=== PATIENT | male | born 1955 | race Caucasian/White ===

== ENCOUNTER 2017-12-18 11:16 | Emergency (ER) | payer BC ==
[2017-12-18 12:01] VITALS: BP 159/87
[2017-12-18] MEDS ORDERED: Diphtheria/Tetanus Toxoids,Adult (Td) 0.5 ML SDV IM ONE (12:03)
--- NOTE | 2017-12-18 17:03 | EDM.PDOC ---
ED HPI GENERAL MEDICAL PROBLEM - General Chief Complaint: General Stated Complaint: hand laceration Time Seen by Provider: 12/18/17 11:30 Source of Information: Reports: Patient History Limitations: Reports: No Limitations - History of Present Illness INITIAL COMMENTS - FREE TEXT/NARRATIVE: This is a 62yo M who got his fingers stuck in a combine. He has stopped bleeding and doing well. He has some abrasions and cut skin. 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) - Related Data Allergies Allergy/AdvReac Type Severity Reaction Status Date / Time codeine Allergy Vomiting Verified 02/11/16 22:14 verapamil [From [facility]] Allergy Anaphylactic Verified 02/11/16 22:14 Shock Home Meds: Home Meds Aspirin 81 mg PO DAILY 02/11/16 [History] DULoxetine HCl [Duloxetine HCl] 30 mg PO BID 02/11/16 [History] Hydrochlorothiazide/Lisinopril [Lisinopril-HCTZ 20-25 MG] 25 mg PO DAILY [History] Metoprolol Tartrate 25 mg PO BID 02/11/16 [History] Past Medical History HEENT History: Reports: Other (See Below) Other HEENT History: sleep apnea Respiratory History: Reports: Sleep Apnea Musculoskeletal History: Reports: Back Pain, Chronic, Fibromyalgia, Neck Pain, Chronic, Other (See Below) Other Musculoskeletal History: Shoulder pain Neurological History: Reports: Brain Injury, Seizure - Past Surgical History Head Surgeries/Procedures: Reports: Other (See Below) Social & Family History - Family History Family Medical History: Noncontributory - Caffeine Use Caffeine Use: Reports: Coffee ED ROS GENERAL - Review of Systems Review Of Systems: ROS reveals no pertinent complaints other than HPI. ED EXAM, GENERAL - Physical Exam Exam: See Below Exam Limited By: No Limitations General Appearance: Alert, WD/WN, No Apparent Distress Respiratory/Chest: No Respiratory Distress Cardiovascular: Normal Peripheral Pulses Extremities: Other (right index and middle finger abrasion and cuts) Neurological: Alert, Oriented, CN II-XII Intact Skin Exam: Wound/Incision (2-3 open wounds of the index finger of right hand 2cm linear, 1cm round; 2 wounds of the middle finger right hand 1cm round) ED GENERAL MEDICAL PROCEDURES - Laceration/Wound Repair Right Hand Lac/wound length in cm: 2 (2 other wounds treated for total 3wounds treated on index and middle finger) Appearance: Linear Distal NVT: Neuro & Vascular Intact, No Tendon Injury Skin Prep: Chlorhexidine (Hibiciens) Exploration/Debridement/Repair: Wound Explored Closed with: Dermabond Course - Vital Signs Last Recorded V/S: Last Vital Signs Temp 36.8 C 12/18/17 11:28 Pulse 89 12/18/17 11:28 Resp 18 12/18/17 11:28 BP 159/87 H 12/18/17 11:50 Pulse Ox 100 12/18/17 11:28 - Orders/Labs/Meds Orders: Active Orders 24 hr Category Date Time Status Vaccines to be Administered [RC] PER UNIT ROUTINE Care 12/18/17 12:04 Active Meds: Medications Discontinued Medications Generic Name Dose Route Start Last Admin Trade Name Freq PRN Reason Stop Dose Admin Tetanus/Diphtheria Toxoids 0.5 ml 12/18/17 12:03 Tenivac IM 12/18/17 12:04 .ONCE ONE Departure - Departure Time of Disposition: 12:00 Disposition: Home, Self-Care 01 Condition: Good Clinical Impression: Laceration - Discharge Information Instructions: Laceration Care, Adult Referrals: PCP,None [Primary Care Provider] - Forms: ED Department Discharge Additional Instructions: Keep wounds clean and dry. Avoid picking at the dermabond. Monitor hand for signs of infection. Please return to the clinic or ER if you have any questions or concerns. - My Orders Last 24 Hours: My Active Orders 12/18/17 12:04 Vaccines to be Administered [RC] PER UNIT ROUTINE - Assessment/Plan Last 24 Hours: My Active Orders 12/18/17 12:04 Vaccines to be Administered [RC] PER UNIT ROUTINE
== END 2017-12-18 11:53 | disposition home or self-care (01) ==
LOC: LB.ED 11:16
DX: S61.210A Laceration without foreign body of right index finger without damage to nail, initial encounter (principal); S61.213A Laceration without foreign body of left middle finger without damage to nail, initial encounter; Z88.5 Allergy status to narcotic agent; Z88.8 Allergy status to other drugs, medicaments and biological substances; Z79.82 Long term (current) use of aspirin; Z23 Encounter for immunization; W23.0XXA Caught, crushed, jammed, or pinched between moving objects, initial encounter
CPT/HCPCS: 12001; 90471; 90714; 99283-25

== ENCOUNTER 2019-06-25 12:24 | Emergency (ER) | payer BC ==
[2019-06-25] MEDS ORDERED: GI Cocktail Oral Solution 30 ML PO ONE (13:30)
[2019-06-25 13:35] VITALS: BP 162/96; PULSE 79
--- NOTE | 2019-06-25 15:47 | CR ---
Date of Service: 06/25/19 Clinical Data: Chest Pain PA AND LATERAL CHEST: Comparison is made to a prior exam dated 05/06/12. The heart size is normal. There is calcification of the aortic arch. The lungs are clear. No pneumothorax. No pleural effusions. There is degenerative disk disease at multiple levels in the thoracic spine. There is mild anterior wedging of multiple midthoracic vertebrae, unchanged from the prior study. No evidence of acute intrathoracic disease. [id number] [facility]
--- NOTE | 2019-06-25 17:26 | ER ---
REASON FOR EMERGENCY ROOM VISIT: Chest pain. 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 He felt a sensation of fluttering in his chest and felt like there was some trapped gas in this area. This was very uncomfortable for him. It did not radiate down his arm or up his neck. It lasted approximately one-half to one hour. After resting for a while, he decided to come into the clinic and have this checked out. He does relate a history of this occurring off and on over the past couple of weeks and usually responds spontaneously. He said he felt nauseated and had some diaphoresis with this spell. He does, however, have a history of [place] spotted fever dating back several years ago and he does get episodes of diaphoresis and other symptoms from that. He has a history of what was suspected to be intermittent atrial fibrillation and he had been Holter monitored, but evidently it has not been documented adequately for him to be on any medication for that. PAST MEDICAL HISTORY: Significant for: 1. [place] spotted fever. 2. Possible episodes of atrial fibrillation. 3. Hypertension. 4. Anxiety. 5. Benign brain tumor, status post craniotomy. 6. Chronic low back pain. MEDICATIONS: Include metoprolol 25 mg p.o. b.i.d., lisinopril with hydrochlorothiazide 20/25 mg 1 p.o. daily, pravastatin, one baby aspirin per day, duloxetine b.i.d. SOCIAL HISTORY: He is and has 3 children who are all healthy. He is a nonsmoker. He rarely drinks alcohol. FAMILY HISTORY: Unremarkable. REVIEW OF SYSTEMS: Pertinent positives and negatives as mentioned above. It should also be noted that in his review of systems, he did relate that he has had a couple of episodes over the past year or so when he has had some loose tarry, black looking stools. These resolved spontaneously and only lasted for one bowel movement. He has had a colonoscopy in the past, but it was over 10 years ago and at that time, he was found to have benign polyps. PHYSICAL EXAMINATION: GENERAL: Reveals a pleasant man, in no acute distress. VITAL SIGNS: He is afebrile, blood pressure 162/96, heart rate 79, respirations 18, O2 sats 98%. HEENT: Head is normocephalic. No conjunctivitis or scleral icterus. Oropharynx is normal. NECK: Supple. No JVD. No adenopathy. CHEST: Clear to auscultation with good breath sounds and good air exchange bilaterally. CARDIAC: Regular rate without murmur. No rub is audible. ABDOMEN: Soft, nontender. No hepatosplenomegaly. No palpable masses. EXTREMITIES: Normal pulses. No edema. SKIN: No rashes. LABORATORY DATA: His CBC was within normal limits. His BMP was within normal limits. Troponin 1 was normal at less than 0.017. A 12-lead EKG shows normal sinus rhythm with a rare PVC and no acute changes. Chest x-ray showed no active pulmonary disease. FURTHER EMERGENCY ROOM COURSE: While this was going on, we went ahead and gave him a GI cocktail. His symptoms by the time he got settled in the emergency room were largely resolved and he felt back to baseline by the time he was through with his emergency room visit. IMPRESSION: Chest pain with "fluttering", resolved. PLAN: One needs to exclude the possibility of intermittent acute atrial fibrillation, which might produce his symptoms. For that reason, he should have another Holter monitoring done. This has been done in the past, but it has been a few years now. Additionally, he needs a stress test and at some point another colonoscopy given his review of systems findings. Should he develop recurrence of symptoms, particularly chest pain, he should return for another evaluation. All questions were answered. He understands and agrees with this plan. ANGELICA/MAGGY /[id number]
== END 2019-06-25 14:50 | disposition home or self-care (01) ==
LOC: LB.ED 12:24
DX: R07.9 Chest pain, unspecified (principal); I10 Essential (primary) hypertension; Z79.82 Long term (current) use of aspirin
CPT/HCPCS: 0296T; 0297T; 36415; 71046; 80048; 84484; 85025; 93005; 99284; 99285-25; A9270-GY

== ENCOUNTER 2019-07-18 11:05 | Day surgery (SDC) | payer BC ==
[~2019-07-18 11:05] MED LIST: Metoclopramide 10 MG/2 ML SDV IV PRN
[2019-07-18] MEDS: Sodium Chloride 0.9% 1,000 ML IV SCH (11:34)
[2019-07-18] MEDS ORDERED: Propofol 200 MG/20 ML SDV ONE (11:55)
[2019-07-18 13:40] VITALS: BP 128/72; PULSE 79
--- NOTE | 2019-07-18 17:05 | OR ---
DATE OF OPERATION: 07/18/2019 SURGEON: Rashaad San MD PREOPERATIVE DIAGNOSIS: Surveillance colonoscopy. POSTOPERATIVE DIAGNOSIS: Surveillance colonoscopy. PROCEDURE: Colonoscopy. ANESTHESIA: MAC. ESTIMATED BLOOD LOSS: None. COMPLICATIONS: None. INDICATION FOR THE PROCEDURE: The patient is a 64-year-old male who last had a colonoscopy 7 to 8 years ago and was found to have a benign polyp at that time. He is here today for routine surveillance colonoscopy. Denies any change in bowel habits since that time. Also complaining of some hemorrhoids. DESCRIPTION OF PROCEDURE: Informed consent was obtained from the patient. The patient was taken to the OR and placed on table in a left lateral decubitus position. Monitored anesthesia care was administered. Digital rectal exam performed. He did have some anal skin tags present. Colonoscope then advanced through the anus and directed toward the cecum. Cecum was reached and identified by appendiceal orifice and ileocecal valve. Colonoscope then slowly withdrawn. No masses. No polyps. No areas of ischemia or inflammation. He did have some sigmoid diverticulosis present. Retroflexion performed in the rectum showing small grade 2 internal hemorrhoids as well. The colonoscope then withdrawn. FINDINGS: Sigmoid diverticulosis as well as anal skin tags and internal hemorrhoids. RECOMMENDATIONS: We would recommend repeat surveillance colonoscopy in 5 years. If his external anal skin tags are bothersome, I can perform excision in the OR. If any issues with bleeding, can band or excise internal hemorrhoids as well. MARIA M/MAGGY /[id number]
== END 2019-07-18 13:10 | disposition home or self-care (01) ==
LOC: LB.SDS 11:05
PROVIDERS: ATTEND Surgery
DX: Z12.11 Encounter for screening for malignant neoplasm of colon (principal); K57.30 Diverticulosis of large intestine without perforation or abscess without bleeding; K64.4 Residual hemorrhoidal skin tags; K64.1 Second degree hemorrhoids; Z86.010 Personal history of colon polyps
CPT/HCPCS: G0121; J2704; J7030

== ENCOUNTER 2022-05-07 13:41 | Emergency (ER) | payer MEDICARE ==
[2022-05-07 14:40] LABS: ESTIMATED GFR 86 mL/min (>60)
[2022-05-07] MEDS ORDERED: Sulfamethoxazole/Trimethoprim 800-160 MG Tab ONE (15:00)
[2022-05-07 15:20] VITALS: BP 169/88; PULSE 78
== END 2022-05-07 15:25 | disposition home or self-care (01) ==
LOC: LB.ED 13:41
DX: N39.0 Urinary tract infection, site not specified (principal); E78.00 Pure hypercholesterolemia, unspecified; I10 Essential (primary) hypertension; Z88.5 Allergy status to narcotic agent; Z88.8 Allergy status to other drugs, medicaments and biological substances; Z79.82 Long term (current) use of aspirin; Z79.899 Other long term (current) drug therapy
CPT/HCPCS: 36415; 51702; 80048; 81001; 85025; 87086; 99284-25; A9270-GY

== ENCOUNTER 2024-09-12 15:49 | Emergency (ER) | payer MEDICARE ==
[2024-09-12 16:20] LABS: BASOPHILS ABSOLUTE AUTO 0.04 K/uL (0.02-0.10); BASOPHILS PERCENT AUTO 0.4 % (0.0-0.5); EOSINOPHILS ABSOLUTE AUTO 0.24 K/uL (0.04-0.40); EOSINOPHILS PERCENT AUTO 2.2 % (1.0-5.0); HEMATOCRIT 46.1 % (40.0-54.0); HEMOGLOBIN 15.5 g/dL (13.0-18.0); LYMPHOCYTES ABSOLUTE AUTO 2.85 K/uL (1.50-4.00); LYMPHOCYTES PERCENT AUTO 26.5 % (20.0-40.0); MEAN CORPUSCULAR HEMOGLOBIN 30.8 pg (27.0-32.0); MEAN CORPUSCULAR HGB CONC 33.6 g/dL (31.0-35.0); MEAN CORPUSCULAR VOLUME 92 fL (76-96); MEAN PLATELET VOLUME 10.3 fL (6.0-10.0); MONOCYTES ABSOLUTE AUTO 1.37 K/uL (0.20-0.80); MONOCYTES PERCENT AUTO 12.7 % (3.0-10.0); NEUTROPHILS ABSOLUTE AUTO 6.26 K/uL (2.00-7.50); NEUTROPHILS PERCENT AUTO 58.2 % (45.0-70.0); PLATELET COUNT,PLT 268 K/uL (150-400); RED BLOOD CELL COUNT 5.03 M/uL (4.50-6.50); RED CELL DISTRIBUTION WIDTH 14.1 % (11.0-16.0); WHITE BLOOD CELL COUNT,WBC 10.8 K/uL (4.0-11.0)
[2024-09-12] MEDS: Acetaminophen/HYDROcodone 325-5 MG Tab PO ONE (16:21)
[2024-09-12 16:40] LABS: A/G RATIO 1.1 (0.8-2.0); ANION GAP 11.1 mmol/L (5.0-15.0); BILIRUBIN TOTAL 0.5 mg/dL (0.0-1.0); BUN/CREATININE RATIO 12.6 (6-25); CALCIUM 9.5 mg/dL (8.5-10.1); CARBON DIOXIDE,CO2 33.5 mmol/L (21.0-32.0); CREATININE 1.11 mg/dL (0.70-1.30); EST CRCL DRUG DOSING (CG) 65.77 mL/min; POTASSIUM,K 5.6 mmol/L (3.5-5.1); PROTEIN TOTAL,TP 7.8 g/dL (6.4-8.2)
[2024-09-12] MEDS: Cyclobenzaprine 10 MG Tab PO ONE (17:30)
[2024-09-12 19:01] VITALS: BP 165/46; PULSE 84
== END 2024-09-12 17:45 | disposition home or self-care (01) ==
LOC: LB.ED 15:49
DX: S03.01XA Dislocation of jaw, right side, initial encounter (principal); I10 Essential (primary) hypertension; E78.00 Pure hypercholesterolemia, unspecified; Z88.5 Allergy status to narcotic agent; Z79.82 Long term (current) use of aspirin; Z79.899 Other long term (current) drug therapy; X58.XXXA Exposure to other specified factors, initial encounter; Y93.89 Activity, other specified
CPT/HCPCS: 36415; 70450; 80053; 85025; 85651; 99284; A9270